=== PATIENT | male | born 1980 | race Caucasian/White ===

== ENCOUNTER 2017-07-07 06:31 | Emergency (ER) | payer MEDICAID, OTHER ==
[~2017-07-07 06:31] MED LIST: Haloperidol Lactate 5 MG/ML SDV ONE; diphenhydrAMINE 50 MG/ML SDV ONE
[2017-07-07] MEDS ORDERED: LORazepam 2 MG/ML SDV ONE (06:32)
[2017-07-07] MEDS ORDERED: Ondansetron 4 MG/2 ML SDV ONE (06:43)
[2017-07-07] MEDS ORDERED: LORazepam 2 MG/ML SDV IM ONE (07:08)
[2017-07-07] MEDS ORDERED: diphenhydrAMINE 50 MG/ML SDV IM ONE (07:09)
[2017-07-07] MEDS ORDERED: Haloperidol Lactate 5 MG/ML SDV IM ONE (07:10)
[2017-07-07] MEDS ORDERED: Ketamine 500 MG/5 ML MDV IM ONE (07:10)
[2017-07-07] MEDS: Ondansetron 4 MG/2 ML SDV IVPUSH ONE ×2 (07:10→08:09)
[2017-07-07] MEDS ORDERED: Sodium Chloride 0.9% 1,000 ML IV SCH ×2 (07:15→08:15)
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
[2017-07-07] MEDS ORDERED: Midazolam 1 MG/ML 2 ML SDV IVPUSH ONE (07:56)
== END 2017-07-07 08:30 | disposition other institution (70) ==
LOC: JP.ED 06:31
DX: T33.822A Superficial frostbite of left foot, initial encounter (principal); S60.812A Abrasion of left wrist, initial encounter; S60.811A Abrasion of right wrist, initial encounter; S81.012A Laceration without foreign body, left knee, initial encounter; S81.011A Laceration without foreign body, right knee, initial encounter; R45.1 Restlessness and agitation; F19.10 Other psychoactive substance abuse, uncomplicated; W25.XXXA Contact with sharp glass, initial encounter
CPT/HCPCS: 36415; 80053; 80305; 81001; 85025; 86803; 87340; 87389; 87449; 96361; 96372; 96374; 96375; 99285; J1200; J1630; J2060; J2250; J2405; J7040; 99284; J7030

== ENCOUNTER 2018-04-01 17:08 | Emergency (ER) | payer SELFPAY ==
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
[2018-04-01] MEDS ORDERED: methylPREDNISolone Sod Succ 1,000 MG in Dextrose 5% in Water 100 ML IV ONE ×2 (18:25)
[2018-04-01] MEDS ORDERED: methylPREDNISolone Sodium Succinate 1,000 MG/8 ML SDV IV ONE (18:54)
== END 2018-04-01 19:46 | disposition home or self-care (01) ==
LOC: JP.ED 17:08
DX: H46.9 Unspecified optic neuritis (principal); G35 Multiple sclerosis; F41.9 Anxiety disorder, unspecified; F32.9 Major depressive disorder, single episode, unspecified; Z79.899 Other long term (current) drug therapy; Z87.891 Personal history of nicotine dependence
CPT/HCPCS: 96365; 99283; J2930; J7060; 99284